=== PATIENT | male | born 1995 | race Caucasian/White ===

== ENCOUNTER → 2018-10-29 | Outpatient (CLI) | payer OTHER ==
--- NOTE | 2018-10-29 13:45 | RADIOLOGY IMAGING REPORT ---
[place] [facility] [place] NAME: Demarcus Hurley : 1995 MR: [id number] V: [id number] EXAM DATE: ORDERING PHYSICIAN: ODETTE VALE TECHNOLOGIST: Location: [facility] Patient: Demarcus Hurley : 1995 Visit/Account:[id number] Date of Sevice: 10/29/2018 Bilateral groin ultrasound. HISTORY: Lump left groin for three days. COMPARISON: None. Multiple lymph nodes measuring up to 2.1 cm in diameter are present in the left groin, left upper thi gh, and right groin. Some of the lymph nodes are oval with fatty lee. Other lymph nodes are somewh at rounded without fatty lee. No focal fluid collections are identified. IMPRESSION: Bilateral groin lymphadenopathy, reactive versus neoplastic. Report Dictated By: Calin Carlson MD at 10/29/2018 1:35 PM Report E-Signed By: Calin Carlson MD at 10/29/2018 1:40 PM WSN:[id number]
== END ==
LOC: US 11:30
PROVIDERS: ATTEND Family Medicine
DX: R59.0 Localized enlarged lymph nodes (principal)
CPT/HCPCS: 76705